=== PATIENT | male | born 1950 | race Caucasian/White ===

== ENCOUNTER 2024-03-25 11:35 | Emergency (ER) | payer MEDICARE, OTHER ==
[~2024-03-25] VITALS: Ht 185.4 cm; Wt 111.1 kg
[2024-03-25 11:44] VITALS: TEMP 99
--- NOTE | 2024-03-25 11:50 | EKG ---
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
--- NOTE | 2024-03-25 11:52 | NUR ---
PT JUST NOW PLACED IN MY ED BED 12
--- NOTE | 2024-03-25 12:14 | ERN ---
General Chief Complaint: Shortness of Breath Stated Complaint: TROUBLE BREATHING Time Seen by MD: 11:39 History of Present Illness Initial Comments 73-year-old male history of emphysema COPD presents for dyspnea. Patient reports he has chronic pneumonia. He reports recently he has had increased dyspnea increased sputum production. No fevers but he reports night sweats. He currently takes DuoNebs, Breo, and azithromycin TID. He also has a history of cardiac ablation. No chest pains. No sore throat. P.o. tolerant. He has been up-to-date with all his medications. He is from [place] and does not have any primary care here in the [place]. Allergies: Coded Allergies: No Known Drug Allergies (Unverified Allergy, Unknown, 03/25/24) Past Medical History Past Medical History: A-Fib, COPD Medical History Other: EMPHYSEMA Past Surgical History: Other Surgical History Other: CARDIAC ABLATION ROS Dictation CONSTITUTIONAL: No chills, no fever, no weakness, no diaphoresis, no malaise. HEAD/FACE: No signs of trauma. EENT: No eye pain, no blurred vision, no tearing, no double vision, no ear pain, no ear discharge, no nose pain, no nasal congestion, no throat pain, no throat swelling, no mouth pain. RESPIRATORY: Dyspnea CARDIOVASCULAR: No chest pain, no edema, no palpitations, no syncope. GASTROINTESTINAL/ABDOMINAL: No abdominal pain, no constipation, no diarrhea, no nausea, no vomiting. GENITOURINARY: No abnormal discharge, no dysuria, no frequent urination, no hematuria. No complaints of pain in the genitals. MUSCULOSKELETAL: No back pain, no gout, no joint pain, no joint swelling, no muscle pain, no muscle stiffness, no neck pain. INTEGUMENTARY: No change in color, no change in hair/nails, no dryness, no lesion, no lumps, no rash. NEUROLOGICAL/PSYCH: No anxiety, not depressed, no emotional problem, no headache, no numbness, no pre-existing deficit, no history of seizures, no tremors, no weakness. HEMATOLOGIC/LYMPHATIC: Not anemic, no history of blood clots, no apparent bleeding, no bruising, glands not swollen. All Systems Negative, Except as Noted. Physical Exam Physical Exam Dictation VITAL SIGNS: Reviewed. GENERAL APPEARANCE: Alert, oriented x3, no acute distress HEAD AND FACE: Non-traumatic. EYES: PERRL, pink conjunctivas, eyelid no trauma, anterior chamber clear. EARS: Pinnas intact and no signs of trauma or erythema. Ear canals clear and no discharge. TMs no erythema. NOSE: No discharge, no bleeding. OROPHARYNX: Mouth normal, teeth no caries, tongue pink. Pharynx clear, no erythema. Tonsils no exudates, no abscesses noted. Mucous membrane moist. NECK: Supple, non-tender, no thyromegaly, no masses, no JVD, no bruits. BREAST: Deferred. CHEST: No tenderness, no crepitus, no paradoxical movement, no retractions. LUNGS: Generalized wheezing HEART: Regular rate, regular rhythm, no murmur, no gallops. VASCULAR: No peripheral edema. ABDOMEN: Soft, positive bowel sounds, nondistended, no guarding, nontender, no rebound, no masses no hepatomegaly, no splenomegaly, no Ferrari's sign, no hernias. RECTAL: Deferred. GENITAL: Deferred. NEUROLOGICAL: Normal speech, gross motor function intact, gross sensory function intact. MUSCULOSKELETAL: Neck nontender, full range of motion, back nontender, full range of motion. EXTREMITIES: Nontender, full range of motion. SKIN: Color pink, dry, no turgor, no rash, no lacerations, no abrasions, no contusions. LYMPHATICS: Deferred. Results Laboratory and Microbiology Lab and Micro Result Laboratory Tests Test 03/25/24 12:28 White Blood Count 13.8 K/uL (4.8-10.8) H Red Blood Count 4.41 MIL/uL (4.50-6.20) L Hemoglobin 13.4 g/dL (14.0-18.0) L Hematocrit 40.6 % (42-54) L Mean Corpuscular Volume 92.1 fL (79-99) Mean Corpuscular Hemoglobin 30.4 pg (27.0-33.0) Mean Corpuscular Hemoglobin Concent 33.0 g/dL (32.0-36.0) Red Cell Distribution Width 13.2 % (11.0-15.5) Platelet Count 386 K/uL (130-400) Mean Platelet Volume 9.8 fL (7.5-10.5) Immature Granulocyte % (Auto) 0.7 % (0-1) Neutrophils (%) (Auto) 84.0 % (40.0-77.0) H Lymphocytes (%) (Auto) 6.9 % (21.0-51.0) L Monocytes (%) (Auto) 7.4 % (3.0-13.0) Eosinophils (%) (Auto) 0.6 % (0.0-8.0) Basophils (%) (Auto) 0.4 % (0.0-5.0) Neutrophils # (Auto) 11.6 K/uL (1.8-7.7) H Lymphocytes # (Auto) 1.0 K/uL (1.0-4.8) Monocytes # (Auto) 1.0 K/uL (0.1-1.0) Eosinophils # (Auto) 0.08 K/uL (0.00-0.70) Basophils # (Auto) 0.06 K/uL (0.00-0.20) Absolute Immature Granulocyte (auto 0.10 K/uL (0-1) Nucleated Red Blood Cells 0.0 % (0.0-0.19) White Cell Morphology Comment See comments Sodium Level 127 mmol/L (136-145) L Potassium Level 3.8 mmol/L (3.5-5.1) Chloride Level 93 mmol/L (101-111) L Carbon Dioxide Level 26 mmol/L (21-32) Blood Urea Nitrogen 11 mg/dL (7-18) Creatinine 1.0 mg/dL (0.5-1.3) Glomerular Filtration Rate Calc 79 mL/min (>90) Random Glucose 104 mg/dL (70-105) Total Calcium 8.8 mg/dL (8.5-10.1) Troponin I High Sensitivity 12 ng/L (4-75) Procalcitonin 0.06 ng/mL (0.05-0.5) MDM CC: Dyspnea cough Historian: Patient Comorbidities: COPD Limitations by social determinants of health: No local PCP Differential diagnosis: COPD exacerbation, pneumonia, respiratory failure Vital signs are stable remained stable in the ER. Oxygen saturation 94% on room air. CBC white count 13.8 left shift. No bands. Hemoglobin 30.4. BNP shows some mild dehydration sodium 127 chloride 93 otherwise unremarkable. Troponin and procalcitonin are stable. Chest x-ray per my interpretation shows fibrosis emphysema mostly on the left side but all over. No focal infiltrates. Patient received 5 mg of albuterol, Atrovent, 125 mg IV methylprednisolone. We will also give a dose of Rocephin. I recommended admission to the patient, this time he prefers not to be admitted. He wants to go and try outpatient oral steroids antibiotics 1st. He will return to the emergency department in a few days if his symptoms are not im proving for admission. ED Course Orders Procedure Category Date Status Time 12 Lead Ekg Tracing- EKG 03/25/24 Complete Technical 11:38 Vital Signs Per CPOE 03/25/24 Transmitted Routine 11:41 Pulse Ox(Continuous) RT 03/25/24 Transmitted 11:41 Oxygen By Nc/Pulse Ox CPOE 03/25/24 Transmitted 11:41 Saline Lock Iv CPOE 03/25/24 Transmitted 11:41 Albuterol 0.083% PHA 03/25/24 Complete 2.5mg/3ml (Proventil 12:30 Ipratropium 0.5 PHA 03/25/24 Complete Mg/2.5 Ml Inh 12:30 Methylprednisolone PHA 03/25/24 Complete Succ 125mg (Solu-Medr 12:30 Troponin I High LAB 03/25/24 Complete Sensitivity 12:04 Cbc With Differential LAB 03/25/24 Complete 12:04 Basic Metabolic Panel LAB 03/25/24 Complete 12:04 Chest 1vw RAD 03/25/24 Taken 12:04 Procalcitonin LAB 03/25/24 Complete 12:04 Current Medications Medications (Trade) Dose Ordered Sig/Blanca Route PRN Reason Start Time Stop Time Status Last Admin Dose Admin Albuterol Sulfate (Proventil 0.083% 2.5mg/3ml) 5 mg ONCE ONCE IH 03/25/24 12:30 03/25/24 12:31 DC 03/25/24 12:41 Ipratropium Fitzgerald (AtrovENT UD) 0.5 MG ONCE ONCE IH 03/25/24 12:30 03/25/24 12:31 DC 03/25/24 12:41 Methylprednisolone Sodium Succinate (Solu-medROL 125MG) 125 mg ONCE ONCE IVP 03/25/24 12:30 03/25/24 12:31 DC Vital Signs Date Time Temp Pulse Resp B/P (MAP) Pulse Ox O2 Delivery O2 Flow Rate FiO2 03/25/24 12:42 80 03/25/24 11:44 99.0 88 16 125/81 03/25/24 11:44 99.0 88 16 125/81 94 Room Air* 0 21 DX & DISP Disposition: Discharge Departure Impression: Primary Impression: COPD exacerbation Condition: Stable Scripts Amoxicillin/Potassium Clav (Amox Tr-K Clv 875-125 mg Tab) 875 Mg-125 Mg Tablet 1 TAB PO BID for 10 Days, #20 TAB 0 Refills Prov: SUSANA GUTIERREZ DO 03/25/24 Methylprednisolone (Medrol) 4 Mg Tab.ds.pk 1 TAB PO AD for 6 Days, #21 TAB 0 Refills 6 on day 1 then reduce by one tablet daily until gone Prov: SUSANA GUTIERREZ DO 03/25/24 Additional Instructions: You are having a COPD exacerbation. Your chest x-ray is consistent with COPD exacerbation. Your lab work shows some mild dehydration but is otherwise stable. (CBC, BMP, t roponin, procalcitonin). You received albuterol, Atrovent, methylprednisolone, and Rocephin here in the ER. I have prescribed Augmentin which is an antibiotic. Take twice per day for 10 days as prescribed. I have prescribed you a Medrol Dosepak. These are anti-inflammatory steroids. Take as prescribed. Continue with all of your home nebulizers. I recommend that you use the Ventolin at least every 4 hours for the next 48 hours. After that use as needed. As we discussed, I recommend that you return to the emergency department in 48 hours if her symptoms do not improve for re-evaluation. Return to the emergency department sooner if you have any concerns. SUSANA GUTIERREZ DO Mar 25, 2024 12:14
[2024-03-25] MEDS: IpraTROPium 0.5 MG/2.5 ML INH IH ONE (12:41)
[2024-03-25] MEDS: ALBUTEROL 0.083% 2.5 MG/3 ML INH IH ONE (12:41)
[2024-03-25 12:42] VITALS: PULSE 80
[2024-03-25 12:44] LABS: POTASSIUM 3.8 mmol/L (3.5-5.1)
[2024-03-25 12:48] LABS: BASOPHILS # (AUTO) 0.06 K/uL (0.00-0.20); BASOPHILS % (AUTO) 0.4 % (0.0-5.0); EOSINOPHILS # (AUTO) 0.08 K/uL (0.00-0.70); EOSINOPHILS % (AUTO) 0.6 % (0.0-8.0); HEMATOCRIT 40.6 % (42-54); LYMPHOCYTES % (AUTO) 6.9 % (21.0-51.0); MEAN CORPUSCULAR HEMOGLOBIN 30.4 pg (27.0-33.0); MEAN CORPUSCULAR VOLUME 92.1 fL (79-99); MONOCYTES % (AUTO) 7.4 % (3.0-13.0); NEUTROPHILS # (AUTO) 11.6 K/uL (1.8-7.7); PLATELET COUNT (AUTO) 386 K/uL (130-400); RED BLOOD CELL COUNT(AUTO) 4.41 MIL/uL (4.50-6.20); RED CELL DISTRIBUTION WIDTH 13.2 % (11.0-15.5); WHITE BLOOD COUNT (AUTO) 13.8 K/uL (4.8-10.8)
[2024-03-25] MEDS ORDERED: METH4TAB3 PO (13:09)
[2024-03-25] MEDS ORDERED: AMOX1TAB16 PO (13:09)
--- NOTE | 2024-03-25 13:13 | HMCIMG ---
CHEST 1VW REASON: CP COMPARISON: None. FINDINGS: There are extensive increased interstitial markings in both lungs. These are more pronounced in the left mid and upper lung, there may be superimposed acute infiltrate in this area. Heart size is normal with no vascular congestion. There are no pleural effusions. IMPRESSION: 1. Extensive increased interstitial markings which may be fibrosis. 2. More confluent infiltrate in the left mid and upper lung consistent with pneumonia.
[2024-03-25] MEDS: cefTRIAXone 1G VIAL IVPB ONE (13:14)
[2024-03-25] MEDS: Solu-medROL 125MG VIAL IVP ONE (13:14)
[2024-03-25 13:59] VITALS: BP 116/76; PULSE 84; RESP 22; O2SAT 94
== END 2024-03-25 13:52 | disposition home or self-care (01) ==
LOC: EDH 11:35
DX: J44.1 Chronic obstructive pulmonary disease with (acute) exacerbation (principal); Z98.890 Other specified postprocedural states
CPT/HCPCS: 99285; 96365; 71045; 96375; 84484; 80048; 85025; 36415; 93005; 94640; 84145; J2919; J0696